=== PATIENT | female | born 1985 | race African-American/Black ===

== ENCOUNTER 2016-10-10 22:20 | Emergency (ER) | payer BC, MEDICAID ==
[~2016-10-10] VITALS: Ht 170.2 cm; Wt 51.4 kg
[~2016-10-10 22:20] MED LIST: ACET-2708 PO
[2016-10-10 22:26] VITALS: BP 108/70
== END 2016-10-11 00:30 | disposition home or self-care (01) ==
LOC: ER 22:20
DX: H10.9 Unspecified conjunctivitis (principal); F17.200 Nicotine dependence, unspecified, uncomplicated; F12.10 Cannabis abuse, uncomplicated
CPT/HCPCS: 99283

== ENCOUNTER 2018-08-04 18:31 | Emergency (ER) | payer BC, MEDICAID ==
[~2018-08-04] VITALS: Ht 165.1 cm; Wt 50.0 kg
[2018-08-04] MEDS ORDERED: SODIUM CHLORIDE 0.9% 1,000 ML IV ONE (19:12)
[2018-08-04] MEDS ORDERED: ONDANSETRON HCL 4MG/2ML INJ IV STA (19:12)
[2018-08-04 19:33] LABS: BASOPHILS % 0.3 % (0.0-2.0); HEMATOCRIT. 40.2 % (36.0-48.0); HEMOGLOBIN. 13.7 g/dL (12.0-16.0); MEAN CORPUSCULAR HEMOGLOBIN 31.9 pg (28.0-32.0); MEAN CORPUSCULAR VOLUME 93.4 fL (81.0-99.0); MEAN PLATELET VOLUME 9.2 fl (7.4-10.4); MONOCYTES % 10.6 % (2.0-8.0); NEUTROPHILS % 80.1 % (40.0-76.0); PLATELET 296 x1000/uL (130-400); RED BLOOD CELL COUNT 4.31 mill/uL (4.2-5.4); RED CELL DISTRIBUTION WIDTH 11.9 % (11.6-14.6)
[2018-08-04 19:39] LABS: CHLORIDE 92 mEq/L (98-107)
[2018-08-04 22:45] VITALS: BP 122/76
== END 2018-08-04 22:45 | disposition home or self-care (01) ==
LOC: ER 18:31
DX: N93.9 Abnormal uterine and vaginal bleeding, unspecified (principal); R03.0 Elevated blood-pressure reading, without diagnosis of hypertension; F12.90 Cannabis use, unspecified, uncomplicated
CPT/HCPCS: 36415; 76830; 76856; 80053; 83690; 85025; 96361; 96374; 99284; J2405; J7030